=== PATIENT | female | born 1935 | race Caucasian/White ===

== ENCOUNTER 2019-01-07 07:36 | Inpatient (IN) | payer MEDICARE, OTHER ==
[~2019-01-07] VITALS: Ht 162.6 cm; Wt 66.0 kg
[~2019-01-07 07:36] MED LIST: BUPIVACAINE LIPOSOME/PF 1.3%-13.3MG/ML SUSPENSION 20 ML VIAL INJ ONE; CALC-1038 PO; CETI10TA59 PO; FLUT16H NASAL; IBUP-2070 PO; LOSA50TA64 PO; MONT10TA21 PO; RINGERS SOLUTION,LACTATED 1,000 ML IV ONE; TRANEXAMIC ACID 1,000 MG in DEXTROSE 5%-WATER 50 ML IV ONE; VITAD1000 PO
[2019-01-07] MEDS ORDERED: SODIUM CHLORIDE 0.9% 10 ML ONE (09:31)
[2019-01-07] MEDS ORDERED: BACITRACIN 50,000 UNITS/VIAL ONE (09:31)
[2019-01-07] MEDS ORDERED: SODIUM CL IRRIG SOLN BAG 3,000 ML IRRIG ONE (09:31)
[2019-01-07] MEDS ORDERED: BUPIVACAINE HCL/PF 0.5% 30 ML VIAL ONE (09:32)
[2019-01-07] MEDS ORDERED: ROPIVACAINE HCL/PF 0.2% 100 ML ED ONE (09:33)
[2019-01-07] MEDS ORDERED: CefTRIAXone SODIUM 1 GM/VIAL ONE (09:33)
[2019-01-07] MEDS ORDERED: SODIUM CHLORIDE 0.9% 30 ML ONE (09:55)
[2019-01-07] MEDS ORDERED: HYDROmorphone 2 MG/ML SYRINGE ONE (12:28)
[2019-01-07] MEDS: HYDROmorphone 2 MG/ML SYRINGE IVP PRN ×2 (12:29→15:29)
[2019-01-07] MEDS ORDERED: DiphenhydrAMINE HCL 50 MG/ML VIAL IVP PRN (12:30)
[2019-01-07] MEDS ORDERED: ZOLPIDEM TARTRATE 10 MG TABLET PO PRN (12:30)
[2019-01-07] MEDS ORDERED: BACITRACIN 28.4 GM OINTMENT TP PRN (12:30)
[2019-01-07] MEDS ORDERED: BISACODYL 10 MG RECTAL RECTAL SUPPOSITORY PR PRN (12:30)
[2019-01-07] MEDS ORDERED: ONDANSETRON HCL 4 MG/2 ML VIAL IVP PRN (12:30)
[2019-01-07] MEDS ORDERED: MAG HYDROX/AL HYDROX/SIMETH 30 ML SUSP UDCUP PO PRN (12:30)
[2019-01-07] MEDS ORDERED: ALBUTEROL SULFATE 2.5 MG/0.5 ML NEB SOLUTION NEB PRN (13:15)
[2019-01-07 14:46] VITALS: BP 110/72
[2019-01-07] MEDS: CYCLOBENZAPRINE HCL 10 MG TABLET PO SCH ×2 (15:28→20:10)
[2019-01-07] MEDS: DEXTROSE 5%-LACTATED RINGERS 1,000 ML IV SCH (15:28)
[2019-01-07] MEDS: ACETAMINOPHEN 1000 MG/ISO-OSM 100 ML IV SCH ×2 (15:28→20:09)
[2019-01-07 19:59] VITALS: BP 93/51
[2019-01-07] MEDS: CeFAZolin 1 GM/DEXTROSE 50 ML IV SCH (20:10)
[2019-01-07] MEDS: FAMOTIDINE 20 MG TABLET PO SCH (20:10)
[2019-01-07] MEDS: DOCUSATE SODIUM 100 MG CAPSULE PO SCH (20:10)
[2019-01-07] MEDS: OXYGEN THERAPY IH SCH (20:52)
[2019-01-08] VITALS (7 sets, daily range): BP systolic 92–147; BP diastolic 46–77
[2019-01-08] MEDS: HYDROmorphone 2 MG/ML SYRINGE IVP PRN ×2 (00:16→08:09)
[2019-01-08] MEDS: CeFAZolin 1 GM/DEXTROSE 50 ML IV SCH (04:24)
[2019-01-08] MEDS: ACETAMINOPHEN 1000 MG/ISO-OSM 100 ML IV SCH (04:24)
[2019-01-08] MEDS: DEXTROSE 5%-LACTATED RINGERS 1,000 ML IV SCH (04:36)
[2019-01-08] MEDS ORDERED: MIDAZOLAM HCL 2 MG/2 ML VIAL IVP ONE (05:29)
[2019-01-08] MEDS ORDERED: ONDANSETRON HCL 4 MG/2 ML VIAL IVP ONE (05:29)
[2019-01-08] MEDS ORDERED: LIDOCAINE/PF 2% 5 ML VIAL IM ONE (05:29)
[2019-01-08] MEDS ORDERED: FentaNYL CITRATE-PF 100 MCG/2 ML VIAL IVP ONE (05:29)
[2019-01-08] MEDS ORDERED: PROPOFOL 1% 20 ML VIAL IVP ONE (05:29)
[2019-01-08] MEDS ORDERED: KETAMINE HCL 50 MG/ML 10 ML VIAL IVP ONE (05:29)
[2019-01-08 06:15] LABS: BASOPHILS % (AUTO) 0.3 % (0.0-2.0); EOSINOPHILS % (AUTO) 0.3 % (1.0-6.0); HEMATOCRIT 29.4 % (36-46); HEMOGLOBIN 9.9 g/dL (12.0-16.0); LYMPHOCYTES # (AUTO) 1.4 K/uL (1.0-4.8); LYMPHOCYTES % (AUTO) 12.3 % (22.0-44.0); MEAN CORPUSCULAR HEMOGLOBIN 30.9 pg (26.0-34.0); MEAN CORPUSCULAR HGB CONC 33.7 G/dL (31.0-37.0); MEAN CORPUSCULAR VOLUME 91 fL (80-100); MONOCYTES # (AUTO) 0.9 K/uL (0.1-1.0); MONOCYTES % (AUTO) 8.4 % (2.0-9.0); NEUTROPHILS # (AUTO) 8.7 K/uL (1.8-7.7); NEUTROPHILS % (AUTO) 78.7 % (40.0-70.0); PLATELET COUNT (AUTO) 229 K/uL (150-450); RED BLOOD CELL COUNT(AUTO) 3.22 MIL/uL (4.00-5.20); RED CELL DISTRIBUTION WIDTH 13.2 % (11.5-14.5)
[2019-01-08 06:50] LABS: CREATININE 1.12 mg/dL (0.60-1.30); POTASSIUM 3.8 mmol/L (3.5-5.1)
[2019-01-08] MEDS: OXYGEN THERAPY IH SCH ×2 (08:00→20:51)
[2019-01-08] MEDS: CHOLECALCIFEROL (VIT D3) 1,000 UNITS TABLET PO SCH (08:09)
[2019-01-08] MEDS: DOCUSATE SODIUM 100 MG CAPSULE PO SCH ×2 (08:10→20:44)
[2019-01-08] MEDS: CALCIUM OYSTER SHELL 500 MG TABLET PO SCH (08:10)
[2019-01-08] MEDS: CETIRIZINE HCL 10 MG TABLET PO SCH (08:10)
[2019-01-08] MEDS: FAMOTIDINE 20 MG TABLET PO SCH ×2 (08:10→20:44)
[2019-01-08] MEDS: CYCLOBENZAPRINE HCL 10 MG TABLET PO SCH ×3 (08:10→20:44)
[2019-01-08] MEDS ORDERED: MONTELUKAST SODIUM 10 MG TABLET PO SCH (09:00)
[2019-01-08] MEDS ORDERED: LOSARTAN POTASSIUM 50 MG TABLET PO SCH (09:00)
[2019-01-08] MEDS ORDERED: SODIUM CHLORIDE 0.9% 1,000 ML IV ONE (11:30)
[2019-01-08] MEDS: FLUTICASONE PROPIONATE 50 MCG/SPRAY 16 GM NASAL SPRAY NASAL SCH (13:06)
[2019-01-08] MEDS: OxyCODONE HCL/ACETAMINOPHEN 10-325 MG TABLET PO PRN (16:12)
[2019-01-08] MEDS: RIVAROXABAN 10 MG TABLET PO SCH (16:26)
[2019-01-08] MEDS: MONTELUKAST SODIUM 10 MG TABLET PO SCH (20:44)
[2019-01-09 04:58] VITALS: BP 142/77
[2019-01-09] MEDS: OxyCODONE HCL/ACETAMINOPHEN 10-325 MG TABLET PO PRN ×3 (05:37→18:01)
[2019-01-09 05:41] LABS: BASOPHILS % (AUTO) 0.2 % (0.0-2.0); HEMATOCRIT 28.4 % (36-46); HEMOGLOBIN 9.5 g/dL (12.0-16.0); LYMPHOCYTES # (AUTO) 1.1 K/uL (1.0-4.8); LYMPHOCYTES % (AUTO) 10.2 % (22.0-44.0); MEAN CORPUSCULAR HEMOGLOBIN 31.1 pg (26.0-34.0); MEAN CORPUSCULAR HGB CONC 33.5 G/dL (31.0-37.0); MEAN CORPUSCULAR VOLUME 93 fL (80-100); MONOCYTES # (AUTO) 1.4 K/uL (0.1-1.0); MONOCYTES % (AUTO) 13.2 % (2.0-9.0); NEUTROPHILS # (AUTO) 7.8 K/uL (1.8-7.7); NEUTROPHILS % (AUTO) 75.4 % (40.0-70.0); PLATELET COUNT (AUTO) 208 K/uL (150-450); RED BLOOD CELL COUNT(AUTO) 3.06 MIL/uL (4.00-5.20); RED CELL DISTRIBUTION WIDTH 13.2 % (11.5-14.5)
[2019-01-09 05:49] LABS: ANION GAP 6 mmol/L (8-16); CALCIUM, TOTAL 8.9 mg/dL (8.8-10.5); CARBON DIOXIDE 30 mmol/L (22-29); CHLORIDE 93 mmol/L (98-107); CREATININE 0.85 mg/dL (0.60-1.30); GLUCOSE,RANDOM 113 mg/dL (70-110); POTASSIUM 3.4 mmol/L (3.5-5.1); SODIUM SERUM 129 mmol/L (136-145); UREA NITROGEN, BLOOD 13 mg/dL (7-18)
[2019-01-09 06:02] LABS: GLOMERULAR FILTR. RATE CALC > 60 mL/min (>60)
[2019-01-09 07:34] VITALS: BP 130/76
[2019-01-09] MEDS: OXYGEN THERAPY IH SCH ×2 (08:00→20:49)
[2019-01-09] MEDS: CYCLOBENZAPRINE HCL 10 MG TABLET PO SCH ×3 (08:12→20:43)
[2019-01-09] MEDS: CETIRIZINE HCL 10 MG TABLET PO SCH (08:12)
[2019-01-09] MEDS: CHOLECALCIFEROL (VIT D3) 1,000 UNITS TABLET PO SCH (08:12)
[2019-01-09] MEDS: FLUTICASONE PROPIONATE 50 MCG/SPRAY 16 GM NASAL SPRAY NASAL SCH (08:12)
[2019-01-09] MEDS: CALCIUM OYSTER SHELL 500 MG TABLET PO SCH (08:12)
[2019-01-09] MEDS: DOCUSATE SODIUM 100 MG CAPSULE PO SCH ×2 (08:12→20:43)
[2019-01-09] MEDS: FAMOTIDINE 20 MG TABLET PO SCH ×2 (08:12→20:42)
[2019-01-09 11:25] VITALS: BP 100/61
[2019-01-09] MEDS ORDERED: SODIUM CHLORIDE 0.9% 1,000 ML IV ONE (12:00)
[2019-01-09] MEDS ORDERED: POTASSIUM CHL 10 MEQ/WATER 50 ML IV PRN (12:00)
[2019-01-09] MEDS ORDERED: POTASSIUM CHLORIDE 20 MEQ ER TABLET PO PRN (12:00)
[2019-01-09 15:22] VITALS: BP 127/71
[2019-01-09] MEDS: RIVAROXABAN 10 MG TABLET PO SCH (17:13)
[2019-01-09 19:11] VITALS: BP 108/65
[2019-01-09] MEDS: MONTELUKAST SODIUM 10 MG TABLET PO SCH (20:42)
[2019-01-09 23:28] VITALS: BP 114/58
[2019-01-10] MEDS: OxyCODONE HCL/ACETAMINOPHEN 10-325 MG TABLET PO PRN ×3 (02:50→16:37)
[2019-01-10 04:27] VITALS: BP 104/58
[2019-01-10] MEDS: OXYGEN THERAPY IH SCH (08:00)
[2019-01-10 08:02] VITALS: BP 115/63
[2019-01-10] MEDS: FLUTICASONE PROPIONATE 50 MCG/SPRAY 16 GM NASAL SPRAY NASAL SCH (08:12)
[2019-01-10] MEDS: CALCIUM OYSTER SHELL 500 MG TABLET PO SCH (08:12)
[2019-01-10] MEDS: DOCUSATE SODIUM 100 MG CAPSULE PO SCH (08:12)
[2019-01-10] MEDS: CYCLOBENZAPRINE HCL 10 MG TABLET PO SCH ×2 (08:13→16:00)
[2019-01-10] MEDS: CHOLECALCIFEROL (VIT D3) 1,000 UNITS TABLET PO SCH (08:13)
[2019-01-10] MEDS: CETIRIZINE HCL 10 MG TABLET PO SCH (08:13)
[2019-01-10] MEDS: FAMOTIDINE 20 MG TABLET PO SCH (08:13)
[2019-01-10 11:33] VITALS: BP 129/65
== END 2019-01-10 16:55 | DRG 470 ==
LOC: 6S 07:36 → 4E 07:37
PROVIDERS: ADMIT Orthopaedic Surgery; ATTEND Orthopaedic Surgery
PROC: 0SRD0J9 Replacement of Left Knee Joint with Synthetic Substitute, Cemented, Open Approach (ICD-10-PCS; principal; 2019-01-07 10:00)
DX: M17.12 Unilateral primary osteoarthritis, left knee (principal); E87.1 Hypo-osmolality and hyponatremia; I10 Essential (primary) hypertension; E55.9 Vitamin D deficiency, unspecified; M81.0 Age-related osteoporosis without current pathological fracture; J45.909 Unspecified asthma, uncomplicated; Z90.710 Acquired absence of both cervix and uterus; Z90.12 Acquired absence of left breast and nipple
CPT/HCPCS: 84132; 87081; 88300; 97110; 97116; 97162; 97165; 97530; 97535; C9290; G0238; G0378; J0131; J0690; J0696; J1170; J1200; J2250; J2405; J2704; J2795; J3010; J3480; J3490; J7030; J7060; J7120